=== PATIENT | male | born 1965 | race Caucasian/White ===

== ENCOUNTER 2019-05-20 05:56 | Inpatient (IN) | payer BC, OTHER ==
[2019-05-17 11:15] VITALS: BMI 31.8
[2019-05-20] VITALS (21 sets, daily range): BP systolic 90–142; BP diastolic 55–93; PULSE 62–96; RESP 10–24; Ht 175.3 cm; Wt 97.1 kg
[~2019-05-20] VITALS: Ht 175.3 cm; Wt 97.1 kg
[~2019-05-20 05:56] MED LIST: BUPIVACAINE 0.5% (SDV) 30 ML, morphine SULFATE (PF) 8 MG, EPINEPHrine 0.3 MG, KETOROLAC... IRR SCH; CETI10TA19 PO; DEXAMETHASONE 1 MG TAB PO ONE; DOXY100T34 PO; FURO20TA3 PO; GABA300C16 PO; GABAPENTIN 300 MG CAP PO ONE; HYDR-3980 PO; LISI-313 PO; PARO10TA57 PO; SOD CHLORIDE 0.9% 100 ML, TRANEXAMIC ACID 3,000 MG IRR ONE; TRANEXAMIC ACID 1GM/100ML(PMX) 100 ML IVPB ONE
[2019-05-20] MEDS ORDERED: PHENYLephrine (100 MCG/ML) 10ML SYG ONE (07:00)
[2019-05-20] MEDS ORDERED: SEVOFLURANE 15 MIN ONE (07:00)
[2019-05-20] MEDS ORDERED: MIDAZOLAM 1 MG/ML 2 ML INJ ONE (07:05)
[2019-05-20] MEDS ORDERED: morphine SULFATE/PF (10 MG/10 ML) INJ ONE (07:06)
[2019-05-20] MEDS ORDERED: PROPOFOL 20 ML ONE ×2 (07:20→07:49)
[2019-05-20] MEDS ORDERED: LIDOCAINE 2% (SDV) 5 ML INJ ONE (07:20)
[2019-05-20] MEDS ORDERED: CEFAZOLIN 1 GM INJ ONE (07:21)
[2019-05-20] MEDS ORDERED: EPHEDrine 25 MG/5 ML SYG ONE (07:35)
[2019-05-20] MEDS ORDERED: TRANEXAMIC ACID 1GM/100ML(PMX) 100 ML ONE ×2 (07:37→08:42)
[2019-05-20] MEDS ORDERED: THROMBIN 5000 UNIT (RECOTHROM) VIAL ONE (07:46)
[2019-05-20] MEDS ORDERED: CA CHLORIDE 10% 10 ML SYRINGE ONE (07:46)
[2019-05-20] MEDS ORDERED: DEXAMETHASONE 4 MG/ML 5 ML INJ ONE (07:49)
[2019-05-20] MEDS ORDERED: ONDANSETRON 4 MG INJ ONE (07:49)
[2019-05-20] MEDS ORDERED: POLYMYXIN/BACITRACIN 1L IRRIG IRR ONE (08:20)
[2019-05-20] MEDS ORDERED: FENTAnyl 50 MCG/ML VIAL IV PRN ×2 (08:30)
[2019-05-20] MEDS ORDERED: PROCHLORPERAZINE 10 MG INJ IV PRN (08:30)
[2019-05-20] MEDS ORDERED: MEPERIDINE 25 MG INJ IV PRN (08:30)
[2019-05-20] MEDS ORDERED: DIPHENHYDRAMINE 50 MG INJ IV PRN ×3 (08:30→16:01)
[2019-05-20] MEDS ORDERED: NALBUPHINE HCL (10 MG/1 ML) INJ IV PRN (08:30)
[2019-05-20] MEDS ORDERED: NALOXONE (0.4 MG/ML) INJ IV PRN (08:30)
[2019-05-20] MEDS ORDERED: EPHEDrine 25 MG/5 ML SYG IV PRN (08:30)
[2019-05-20] MEDS ORDERED: HYDROmorphONE 1 MG/5 ML IV SYRINGE IV PRN ×3 (08:30)
[2019-05-20] MEDS ORDERED: ONDANSETRON 4 MG INJ IV PRN ×3 (08:30→16:01)
[2019-05-20] MEDS ORDERED: MAGNESIUM HYDROXIDE 30ML CUP PO PRN (09:00)
[2019-05-20] MEDS ORDERED: VANCOMYCIN 500 MG (PMX) 100 ML IVPB SCH (09:00)
[2019-05-20] MEDS ORDERED: HYDROmorphONE 1 MG/ML SYG IV PRN (09:00)
[2019-05-20] MEDS ORDERED: NON-FORMULARY/PATIENT OWN MED (Cetirizine Hcl* 10 MG) PO SCH (09:00)
[2019-05-20] MEDS ORDERED: oxyCODONE 5 MG TAB PO PRN ×2 (09:00)
[2019-05-20] MEDS ORDERED: ZOLPIDEM 5 MG TAB PO PRN (09:00)
[2019-05-20] MEDS ORDERED: NACL 0.9% 3 ML SYG IV SCH (09:00)
[2019-05-20] MEDS ORDERED: ACETAMINOPHEN 1000MG/100ML IV 100 ML IVPB SCH (09:00)
[2019-05-20] MEDS: LORATADINE 10 MG TAB PO SCH (11:12)
[2019-05-20] MEDS: SENNA/DOCUSATE NA (8.6MG/50MG) TAB PO SCH ×2 (11:12→20:47)
[2019-05-20] MEDS: LISINOPRIL 5 MG TAB PO SCH (11:13)
[2019-05-20] MEDS: FUROSEMIDE 20 MG TAB PO SCH (11:13)
[2019-05-20] MEDS: LACTATED RINGER'S 1,000 ML IV SCH ×3 (11:15→23:14)
[2019-05-20] MEDS: DEXAMETHASONE 2 MG TAB PO SCH ×2 (13:12→18:24)
[2019-05-20] MEDS: VANCOMYCIN 500 MG (PMX) 100 ML IVPB SCH (15:16)
[2019-05-20] MEDS ORDERED: HYDROmorphONE 0.5 MG/0.5 ML SYG IV PRN ×2 (16:01)
[2019-05-20] MEDS: ACETAMINOPHEN 1000MG/100ML IV 100 ML IVPB SCH (18:25)
[2019-05-20] MEDS: PAROXETINE 10 MG TAB PO SCH (20:31)
[2019-05-20] MEDS: GABAPENTIN 300 MG CAP PO SCH (20:31)
[2019-05-20] MEDS: oxyCODONE 5 MG TAB PO PRN (20:31)
[2019-05-21] MEDS: DEXAMETHASONE 2 MG TAB PO SCH ×2 (00:20→06:58)
[2019-05-21 02:00] VITALS: BP 106/55; PULSE 66; RESP 18
[2019-05-21] MEDS: ACETAMINOPHEN 1000MG/100ML IV 100 ML IVPB SCH (03:20)
[2019-05-21] MEDS: VANCOMYCIN 500 MG (PMX) 100 ML IVPB SCH (03:26)
[2019-05-21 08:00] VITALS: BP 98/56; PULSE 72; RESP 18
[2019-05-21] MEDS ORDERED: ASPIRIN (EC) 325 MG TAB PO SCH (09:00)
[2019-05-21] MEDS: LISINOPRIL 5 MG TAB PO SCH (09:23)
[2019-05-21] MEDS: FUROSEMIDE 20 MG TAB PO SCH (09:24)
[2019-05-21] MEDS: SENNA/DOCUSATE NA (8.6MG/50MG) TAB PO SCH ×2 (09:24→20:04)
[2019-05-21] MEDS: LORATADINE 10 MG TAB PO SCH (09:25)
[2019-05-21] MEDS: LACTATED RINGER'S 1,000 ML IV SCH (12:16)
[2019-05-21] MEDS: oxyCODONE 5 MG TAB PO PRN ×2 (13:24→18:03)
[2019-05-21 14:05] VITALS: PULSE 69; RESP 18
[2019-05-21 19:30] VITALS: BP 134/77; PULSE 88; RESP 18
[2019-05-21] MEDS: PAROXETINE 10 MG TAB PO SCH (20:04)
[2019-05-21] MEDS: GABAPENTIN 300 MG CAP PO SCH (20:04)
[2019-05-22] MEDS ORDERED: MAGNESIUM HYDROXIDE 30ML CUP PO SCH (21:00)
== END 2019-05-21 20:40 | DRG 470 ==
LOC: REC 05:56 → MS1 10:30 → EDSEX 11:30 → EDSTATUS 11:30
PROVIDERS: ADMIT Orthopaedic Surgery; ATTEND Orthopaedic Surgery
PROC: 0SR904A Replacement of Right Hip Joint with Ceramic on Polyethylene Synthetic Substitute, Uncemented, Open Approach (ICD-10-PCS; principal; 2019-05-20 07:00)
DX: M13.851 Other specified arthritis, right hip (principal); E66.9 Obesity, unspecified; G89.29 Other chronic pain; Z68.31 Body mass index [BMI] 31.0-31.9, adult
CPT/HCPCS: 72170; 73530; 85025; 86999; 87086; 88304; 88311; 97116; 97162; 97530; C1713; C1776; J0131; J0171; J0690; J0735; J1100; J1885; J2250; J2274; J2370; J2405; J3370; J7120